=== PATIENT | female | born 1970 | race Hispanic/Latino ===

== ENCOUNTER 2023-09-19 17:45 | Emergency (ER) | payer MEDICAID ==
[~2023-09-19] VITALS: Ht 154.9 cm; Wt 84.4 kg
[2023-09-19 18:06] VITALS: BP 156/89; PULSE 80; RESP 18; O2SAT 96
== END 2023-09-20 00:22 | disposition left against medical advice (07) ==
LOC: EDH 17:45
DX: S61.210A Laceration without foreign body of right index finger without damage to nail, initial encounter (principal); Z53.21 Procedure and treatment not carried out due to patient leaving prior to being seen by health care provider; W26.8XXA Contact with other sharp object(s), not elsewhere classified, initial encounter; Y93.89 Activity, other specified; Y92.89 Other specified places as the place of occurrence of the external cause; Y99.8 Other external cause status
CPT/HCPCS: 99281